=== PATIENT | female | born 1985 | race Caucasian/White ===

== ENCOUNTER 2017-12-24 21:27 | Observation (INO) | payer BC ==
[2017-12-24] MEDS ORDERED: ONDANSETRON 4 MG/2 ML VIAL IVP STA (21:54)
[2017-12-24] MEDS ORDERED: KETOROLAC 30 MG/ML 1 ML VIAL IVP STA (21:54)
[2017-12-24] MEDS ORDERED: SODIUM CHLORIDE 0.9% 1,000 ML IV STA (21:54)
--- NOTE | 2017-12-24 21:57 | ED ---
Abdominal Pain HPI - General Chief Complaint: Abdominal Pain Stated Complaint: Abd Pain Time Seen by Provider: 12/24/17 21:34 Source: patient, RN notes reviewed Mode of arrival: ambulatory Limitations: no limitations - History of Present Illness Initial Comments: This is a 32-year-old female who presents to the emergency department with chief complaint of right upper quadrant abdominal pain. Patient states that for the past 4-5 days she has been experiencing right upper quadrant abdominal pain after eating. She states that the pain is stabbing and burning and radiates to her back. She denies any fevers or chills. He reports nausea, vomiting and loose stools. Denies any urinary symptoms such as dysuria or hematuria. She does state that she developed right upper quadrant abdominal pain in 2003 and was evaluated for gallbladder issues. She is unsure if she was diagnosed with gallstones but states that her doctor told her she had some sort of gallbladder abnormality. - Related Data Home Medications Medication Instructions Recorded Confirmed Pnv,Calcium 72/Iron/Folic Acid 1 each PO DAILY 02/01/16 02/01/16 [ Plus Tablet] Previous Rx's Medication Instructions Recorded Acetaminophen-Codeine 300-30mg 1 - 2 each PO Q4HR PRN #40 tab 02/04/16 [Tylenol w/codeine #3] Ibuprofen [Motrin] 600 mg PO Q6HR PRN #40 tab 02/04/16 Allergies Allergy/AdvReac Type Severity Reaction Status Date / Time No Known Allergies Allergy Verified 12/24/17 21:31 Review of Systems ROS Statement: Those systems with pertinent positive or pertinent negative responses have been documented in the HPI. ROS Other: All systems not noted in ROS Statement are negative. Past Medical History Past Medical History: No Reported History History of Any Multi-Drug Resistant Organisms: None Reported Past Surgical History: Orthopedic Surgery, Tonsillectomy Additional Past Surgical History / Comment(s): cervical biopsy 2001 for negative result Past Anesthesia/Blood Transfusion Reactions: No Reported Reaction Past Psychological History: No Psychological Hx Reported Smoking Status: Current every day smoker Past Alcohol Use History: None Reported Past Drug Use History: None Reported - Past Family History Mother History Unknown: Yes Family Medical History: No Reported History General Exam - General Exam Comments Initial Comments: General: Awake and alert, well-developed; in no apparent distress. HEENT: Head atraumatic, normocephalic. Pupils are equal, round and reactive to light. Extraocular movements intact. Oropharynx moist without erythema or exudate. Neck: Supple. Normal ROM. Cardiovascular: Regular rate and rhythm. No murmurs, rubs or gallops. Chest symmetrical. Respiratory: Lungs clear to auscultation bilaterally. No wheezes, rales or rhonchi. Normal respiratory effort with no use of accessory muscles. Abdomen: Soft, non-distended. Tenderness on palpation right upper quadrant. No rigidity, rebound or guarding. Normal bowel sounds in all 4 quadrants. Musculoskeletal: Normal ROM, no tenderness bilateral upper and lower extremities. Ambulating normally. Skin: [place], warm and dry without rashes or lesions. Neurological: Alert and oriented x3. CN II-XII grossly intact. Speech is fluent and answers are appropriate. No focal neuro deficits. Psychiatric: Normal mood and affect. No overt signs of depression or anxiety noted. Limitations: no limitations (Initial vital signs: Temperature 90.7, pulse 89, respirations 18, blood pressure 149/100, pulse ox 90% on room air) Course Vital Signs 12/24/17 12/24/17 21:28 23:10 Temperature 98.7 F Pulse Rate 89 Respiratory 18 18 Rate Blood Pressure 149/100 O2 Sat by Pulse 98 Oximetry Medical Decision Making - Medical Decision Making This is a 32-year-old female presents to the emergency department with chief complaint of right upper quadrant abdominal pain for the past week. The pain comes on after she eats. Admits to associated nausea and vomiting. Denies fevers or chills. Ultrasound of the gallbladder was obtained and revealed a gallstone impacted in the gallbladder neck. CBC was unremarkable without a white count. CMP was unremarkable. No elevation of transaminases, amylase or lipase. Patient's vital signs are stable and she is afebrile. Patient will be admitted under Dr. York with the diagnosis of choledocholithiasis. She was given a single dose of Rocephin, pain medication and antiemetics while in the emergency department. She states that she her symptoms have markedly improved. Patient is in agreement for admission. Gastroenterology will be consulted. Patient is in no acute distress at this time. - Lab Data Result diagrams: 12/24/17 23:00 12/24/17 23:00 Lab Results 06/24/18 06/24/18 06/24/18 Range/Units 21:45 21:45 23:00 WBC (3.8-10.6) k/uL RBC (3.80-5.40) m/uL Hgb (11.4-16.0) gm/dL Hct (34.0-46.0) % MCV (80.0-100.0) fL MCH (25.0-35.0) pg MCHC (31.0-37.0) g/dL RDW (11.5-15.5) % Plt Count (150-450) k/uL Neutrophils % (Manual) % Lymphocytes % (Manual) % Monocytes % (Manual) % Eosinophils % (Manual) % Neutrophils # (Manual) (1.3-7.7) k/uL Lymphocytes # (Manual) (1.0-4.8) k/uL Monocytes # (Manual) (0-1.0) k/uL Eosinophils # (Manual) (0-0.7) k/uL Nucleated RBCs (0-0) /100 WBC Manual Slide Review PT (9.0-12.0) sec INR (<1.2) APTT (22.0-30.0) sec Sodium 139 (137-145) mmol/L Potassium 4.3 (3.5-5.1) mmol/L Chloride 108 H (98-107) mmol/L Carbon Dioxide 20 L (22-30) mmol/L Anion Gap 11 mmol/L BUN 14 (7-17) mg/dL Creatinine 0.70 (0.52-1.04) mg/dL Est GFR (CKD-EPI)AfAm >90 (>60 ml/min/1.73 sqM) Est GFR (CKD-EPI)NonAf >90 (>60 ml/min/1.73 sqM) Glucose 94 (74-99) mg/dL Calcium 8.9 (8.4-10.2) mg/dL Total Bilirubin 0.4 (0.2-1.3) mg/dL AST 27 (14-36) U/L ALT 35 (9-52) U/L Alkaline Phosphatase 57 (38-126) U/L Total Protein 6.8 (6.3-8.2) g/dL Albumin 3.9 (3.5-5.0) g/dL Amylase 68 (30-110) U/L Lipase 116 (23-300) U/L Urine Color Yellow Urine Appearance Turbid H (Clear) Urine pH 8.0 (5.0-8.0) Ur Specific [place] 1.020 (1.001-1.035) Urine Protein Negative (Negative) Urine Glucose (UA) Negative (Negative) Urine Ketones Negative (Negative) Urine Blood Small H (Negative) Urine Nitrite Negative (Negative) Urine Bilirubin Negative (Negative) Urine Urobilinogen 2.0 (<2.0) mg/dL Ur Leukocyte Esterase Negative (Negative) Urine RBC 5 (0-5) /hpf Ur Squamous Epith Cells 4 (0-4) /hpf Amorphous Sediment Moderate H (None) /hpf Urine HCG, Qual Not Detected (Not Detectd) 12/24/17 12/24/17 Range/Units 23:00 23:00 WBC 10.6 (3.8-10.6) k/uL RBC 4.84 (3.80-5.40) m/uL Hgb 13.5 (11.4-16.0) gm/dL Hct 41.0 (34.0-46.0) % MCV 84.6 (80.0-100.0) fL MCH 27.9 (25.0-35.0) pg MCHC 33.0 (31.0-37.0) g/dL RDW 12.9 (11.5-15.5) % Plt Count 353 (150-450) k/uL Neutrophils % (Manual) 53 % Lymphocytes % (Manual) 37 % Monocytes % (Manual) 7 % Eosinophils % (Manual) 3 % Neutrophils # (Manual) 5.62 (1.3-7.7) k/uL Lymphocytes # (Manual) 3.92 (1.0-4.8) k/uL Monocytes # (Manual) 0.74 (0-1.0) k/uL Eosinophils # (Manual) 0.32 (0-0.7) k/uL Nucleated RBCs 0 (0-0) /100 WBC Manual Slide Review Performed PT 10.0 (9.0-12.0) sec INR 1.0 (<1.2) APTT 30.7 H (22.0-30.0) sec Sodium (137-145) mmol/L Potassium (3.5-5.1) mmol/L Chloride (98-107) mmol/L Carbon Dioxide (22-30) mmol/L Anion Gap mmol/L BUN (7-17) mg/dL Creatinine (0.52-1.04) mg/dL Est GFR (CKD-EPI)AfAm (>60 ml/min/1.73 sqM) Est GFR (CKD-EPI)NonAf (>60 ml/min/1.73 sqM) Glucose (74-99) mg/dL Calcium (8.4-10.2) mg/dL Total Bilirubin (0.2-1.3) mg/dL AST (14-36) U/L ALT (9-52) U/L Alkaline Phosphatase (38-126) U/L Total Protein (6.3-8.2) g/dL Albumin (3.5-5.0) g/dL Amylase (30-110) U/L Lipase (23-300) U/L Urine Color Urine Appearance (Clear) Urine pH (5.0-8.0) Ur Specific [place] (1.001-1.035) Urine Protein (Negative) Urine Glucose (UA) (Negative) Urine Ketones (Negative) Urine Blood (Negative) Urine Nitrite (Negative) Urine Bilirubin (Negative) Urine Urobilinogen (<2.0) mg/dL Ur Leukocyte Esterase (Negative) Urine RBC (0-5) /hpf Ur Squamous Epith Cells (0-4) /hpf Amorphous Sediment (None) /hpf Urine HCG, Qual (Not Detectd) - Radiology Data Radiology results: report reviewed Ultrasound gallbladder impression: Right kidney measures 11.4 x 5 cm with no hydronephrosis. No free fluid. There is a gallstone impacted in the gallbladder neck. Common bile duct is 3 mm. Bile ducts are not dilated. Disposition Clinical Impression: Choledocholithiasis Disposition: ADMITTED IP TO THIS HOSP Condition: Good Is patient prescribed a controlled substance at d/c from ED?: No Time of Disposition: 23:57
[2017-12-24 22:29] LABS: Amorphous Sediment,Urine Moderate /hpf; Appearance,Urine Turbid (Clear); Bilirubin,Urine Negative (Negative); Blood,Urine Small (Negative); Color,Urine Yellow; Glucose,Urine (UA) Negative (Negative); Ketones,Urine Negative (Negative); Leukocyte Esterase,Urine Negative (Negative); Nitrite,Urine Negative (Negative); Protein,Urine Negative (Negative); RBC,Urine 5 /hpf (0-5); Squamous Epithelial Cell,Urine 4 /hpf (0-4)
--- NOTE | 2017-12-24 23:18 | US ---
EXAMINATION TYPE: US gallbladder DATE OF EXAM: 12/24/2017 COMPARISON: NONE CLINICAL HISTORY: Pain. EC patient with severe epigastric and RUQ pain, nausea and vomiting with pain radiating to back EXAM MEASUREMENTS: Liver Length: cm Gallbladder Wall: cm CBD: cm Right Kidney: cm Pancreas: hyperechoic Liver: no masses seen Gallbladder: non mobile, shadowing stone seen in neck of gallbladder and stone size = 1.5 x 1.7 x 0. 7cm; thickened gallbladder wall Evidence for sonographic Cruz's sign: yes CBD: wnl Right Kidney: wnl IMPRESSION: Right kidney measures 11.4 x 5 cm with no hydronephrosis. No free fluid. : There is a gallstone impacted in the gallbladder neck. Common bile duct is 3 mm. Bile ducts are not dilated.
[2017-12-24 23:21] LABS: HGB 13.5 gm/dL (11.4-16.0); MCH 27.9 pg (25.0-35.0); MCV 84.6 fL (80.0-100.0); Mean Platelet Volume 7.4; Platelet Count 353 k/uL (150-450); RBC 4.84 m/uL (3.80-5.40); RDW 12.9 % (11.5-15.5); WBC 10.6 k/uL (3.8-10.6)
[2017-12-24 23:28] LABS: ALT 35 U/L (9-52); AST 27 U/L (14-36); Albumin 3.9 g/dL (3.5-5.0); Alkaline Phosphatase 57 U/L (38-126); Amylase 68 U/L (30-110); Anion Gap 11 mmol/L; Blood Urea Nitrogen 14 mg/dL (7-17); Calcium 8.9 mg/dL (8.4-10.2); Carbon Dioxide 20 mmol/L (22-30); Chloride 108 mmol/L (98-107); Glucose 94 mg/dL (74-99); Lipase 116 U/L (23-300); Partial Thromboplastin Time 30.7 sec (22.0-30.0); Potassium 4.3 mmol/L (3.5-5.1); Sodium 139 mmol/L (137-145); Total Bilirubin 0.4 mg/dL (0.2-1.3); Total Protein 6.8 g/dL (6.3-8.2)
[2017-12-24] MEDS ORDERED: cefTRIAXone IN SWFI 1,000 MG/10 ML SYRINGE IVP STA (23:41)
[2017-12-24] MEDS ORDERED: IBUPROFEN 400 MG TAB PO PRN (23:52)
[2017-12-24] MEDS ORDERED: NALOXONE 0.4 MG/ML 1 ML VIAL IV PRN (23:52)
[2017-12-25 00:04] LABS: Eosinophils # (M) 0.32 k/uL (0-0.7); Lymphocytes # (M) 3.92 k/uL (1.0-4.8); Monocytes # (M) 0.74 k/uL (0-1.0); Neutrophils # (M) 5.62 k/uL (1.3-7.7); Neutrophils % (M) 53 %; Nucleated Red Blood Cells 0 /100 WBC (0-0); Total Cells Counted 100
[2017-12-25] MEDS: SODIUM CHLORIDE 0.9% 1,000 ML IV SCH (00:24)
[2017-12-25 01:10] VITALS: BMI 44.7
[2017-12-25] MEDS: ONDANSETRON 4 MG/2 ML VIAL IVP PRN (08:34)
--- NOTE | 2017-12-25 14:07 | P.HPIM ---
History of Present Illness H&P Date: 12/25/17 Chief Complaint: abdominal pain 32-year-old who presented to the emergency room with a chief complaint of right upper quadrant pain for the last two weeks with occasional emesis. Patient reports her pain states about 20 minutes after eating and was originally only lasting 30 minutes after a meal, but more recently the pain is lasting 2-3 hours after each meal. She reports nausea this morning but no further episodes of vomiting. Reports bowel movement yesterday. Voiding without difficulty. Patient states she saw a family physician in 2003 and was told she had a gallbladder abnormality, but patient was unable to elaborate any further. She states she did not have any gallstones at that time. The patient denies medical history. She has a surgical history of tonsillectomy and . She is a current everyday cigarette smoker. Ultrasound: Her: There is a gallstone impacted in the complete her neck., Bile duct is 3 mm. Bile ducts are not dilated. Laboratory data: WBC 10.6. Hemoglobin 13.5. Platelet count 353. Sodium 139. Potassium 4.3. BUN 14. Creatinine 0.70. LFTs and pancreas enzymes within normal limits. Urinalysis: Turbid yellow urine, small hematuria, negative for leukocyte esterase or nitrites. The patient was admitted to the hospital under the care of Dr. Renteria. Consultations were placed to GI. Review of Systems Those systems with pertinent positive or pertinent negative responses have been documented in the HPI Past Medical History Past Medical History: No Reported History History of Any Multi-Drug Resistant Organisms: None Reported Past Surgical History: Section, Orthopedic Surgery, Tonsillectomy Additional Past Surgical History / Comment(s): cervical biopsy 2001 for negative result Past Anesthesia/Blood Transfusion Reactions: No Reported Reaction Past Psychological History: No Psychological Hx Reported Smoking Status: Current every day smoker Past Alcohol Use History: None Reported Past Drug Use History: None Reported - Past Family History Mother History Unknown: Yes Family Medical History: No Reported History Medications and Allergies Home Medications Medication Instructions Recorded Confirmed Type Multivitamins, Thera [Multivitamin 1 tab PO HS 12/25/17 12/25/17 History (formulary)] [id number] 1 tab PO HS 12/25/17 12/25/17 History Allergies Allergy/AdvReac Type Severity Reaction Status Date / Time No Known Allergies Allergy Verified 12/24/17 21:31 Physical Exam Vitals: Vital Signs Temp Pulse Pulse Resp BP BP Pulse Ox 12/25/17 07:30 98.1 F 68 16 125/86 97 12/25/17 01:02 98.2 F 66 16 132/87 95 12/25/17 00:26 98.8 F 72 18 136/72 99 12/24/17 23:10 18 12/24/17 21:28 98.7 F 89 18 149/100 98 Intake and Output 12/24/17 12/25/17 12/25/17 22:59 06:59 14:59 Output Total 250 Balance -250 Output: Urine 250 Other: Voiding Method Toilet Toilet # Voids 1 Weight 115.666 kg 118.3 kg GENERAL: This is a 32-year-old female in no apparent distress at the time of examination. Pleasant and cooperative. HEENT: Head is atraumatic, normocephalic. Pupils are equal, round, and reactive to light. Sclerae anicteric. Conjunctivae are clear. Mucus membranes of the mouth are moist. Neck is supple. RESPIRATORY: Clear to ausculation. No wheezes, rales, or rhonchi. No use of accessory muscles. Patient maintaining oxygen saturation greater than 92%. No chest wall tenderness is noted on palpation or with deep breathing. CARDIOVASCULAR: Regular rate and rhythm. S1 and S2 noted. No systolic or diastolic murmur auscultated. No JVD noted. No S3 or S4 noted. GASTROINTESTINAL: No distention noted. Abdomen soft and round. Normal active bowel sounds auscultated x 4 quadrants. Pain and tenderness noted upon palpation of right upper quadrant. INTEGUMENTARY: No cyanosis. No jaundice. No rashes noted. No cellulitis noted. EXTREMITIES: 2+ peripheral pulses. No evidence of peripheral edema. No calf tenderness noted. NEUROLOGIC: Cranial nerves II-XII intact. PSYCHIATRIC: Awake, alert, and oriented X 3. Appropriate affect. Intact judgement and insight. Results CBC & Chem 7: 12/24/17 23:00 12/24/17 23:00 Labs: Abnormal Lab Results - Last 24 Hours (Table) 12/24/17 12/24/17 12/24/17 Range/Units 21:45 23:00 23:00 APTT 30.7 H (22.0-30.0) sec Chloride 108 H (98-107) mmol/L Carbon Dioxide 20 L (22-30) mmol/L Urine Appearance Turbid H (Clear) Urine Blood Small H (Negative) Amorphous Sediment Moderate H (None) /hpf Thrombosis Risk Factor Assmnt - Choose All That Apply Each Factor Represents 1 point: Obesity (BMI >25), Oral contraceptives or hormone replacement therapy Other Risk Factors: No Thrombosis Risk Factor Assessment Total Risk Factor Score: 2 Thrombosis Risk Factor Assessment Level: Low Risk Assessment and Plan Plan: ASSESSMENT: Right upper quadrant abdominal pain, nausea, and vomiting x 2 weeks, US gallbladder reveals gallstone impacted in the common bile duct Nicotine dependence, patient is a current cigarette smoker Morbid obesity: BMI 44.8 PLAN: GI on consult. Appreciate recommendations and input Continue IV fluids Pain control Anti-emetics NPO Home meds as appropriate Monitor labs GI prophylaxis: Protonix 40 mg IV Daily DVT prophylaxis: SCDs to bilateral lower extremities Monitor vital signs and address as appropriate Discharge planning: Patient to return home when stable Further recommendations pending patient's course Nurse practitioner note has been reviewed by physician. Signing provider agrees with the documented findings, assessment, and plan of care.
[2017-12-25] MEDS: KETOROLAC 30 MG/ML 1 ML VIAL IVP PRN ×2 (16:53→23:52)
--- NOTE | 2017-12-25 17:40 | P.GSCN ---
History of Present Illness Consult date: 12/25/17 Reason for Consult: Acute cholecystitis History of present illness: Patient presents to the ER last night with complaints of right upper quadrant pain. Some radiation to the back. There were episodes of nausea and vomiting with this. Similar episodes in 2004 in 2016. Ultrasound shows gallstones with an impacted stone at the gallbladder neck. Liver enzymes are currently normal. She is afebrile. Denies any change in the color of her skin urine or stool. Overall feels better than when she came to the hospital. Review of Systems The patient denies any acute changes in vision or hearing, no dysphagia or odynophagia, no chest pain or shortness of breath, no dysuria or hematuria, no headache, no runny nose, no rectal bleeding or melena, no unexplained weight loss Past Medical History Past Medical History: No Reported History History of Any Multi-Drug Resistant Organisms: None Reported Past Surgical History: Section, Orthopedic Surgery, Tonsillectomy Additional Past Surgical History / Comment(s): cervical biopsy 2001 for negative result Past Anesthesia/Blood Transfusion Reactions: No Reported Reaction Past Psychological History: No Psychological Hx Reported Smoking Status: Current every day smoker Past Alcohol Use History: None Reported Past Drug Use History: None Reported - Past Family History Mother History Unknown: Yes Family Medical History: No Reported History Medications and Allergies Home Medications Medication Instructions Recorded Confirmed Type Multivitamins, Thera [Multivitamin 1 tab PO HS 12/25/17 12/25/17 History (formulary)] [id number] 1 tab PO HS 12/25/17 12/25/17 History Allergies Allergy/AdvReac Type Severity Reaction Status Date / Time No Known Allergies Allergy Verified 12/24/17 21:31 Surgical - Exam Vital Signs Temp Pulse Resp BP Pulse Ox 98.7 F 89 18 149/100 98 12/24/17 21:28 12/24/17 21:28 12/24/17 21:28 12/24/17 21:28 12/24/17 21:28 Physical exam: General: Well-developed, well-nourished HEENT: Normocephalic, sclerae nonicteric Abdomen: Nontender, nondistended Extremities: No edema Neuro: Alert and oriented Results - Labs 12/24/17 23:00 12/24/17 23:00 Abnormal Lab Results - Last 24 Hours (Table) 12/24/17 12/24/17 12/24/17 Range/Units 21:45 23:00 23:00 APTT 30.7 H (22.0-30.0) sec Chloride 108 H (98-107) mmol/L Carbon Dioxide 20 L (22-30) mmol/L Urine Appearance Turbid H (Clear) Urine Blood Small H (Negative) Amorphous Sediment Moderate H (None) /hpf Diabetes panel 12/24/17 Range/Units 23:00 Sodium 139 (137-145) mmol/L Potassium 4.3 (3.5-5.1) mmol/L Chloride 108 H (98-107) mmol/L Carbon Dioxide 20 L (22-30) mmol/L BUN 14 (7-17) mg/dL Creatinine 0.70 (0.52-1.04) mg/dL Glucose 94 (74-99) mg/dL Calcium 8.9 (8.4-10.2) mg/dL AST 27 (14-36) U/L ALT 35 (9-52) U/L Alkaline Phosphatase 57 (38-126) U/L Total Protein 6.8 (6.3-8.2) g/dL Albumin 3.9 (3.5-5.0) g/dL Calcium panel 12/24/17 Range/Units 23:00 Calcium 8.9 (8.4-10.2) mg/dL Albumin 3.9 (3.5-5.0) g/dL Pituitary panel 12/24/17 Range/Units 23:00 Sodium 139 (137-145) mmol/L Potassium 4.3 (3.5-5.1) mmol/L Chloride 108 H (98-107) mmol/L Carbon Dioxide 20 L (22-30) mmol/L BUN 14 (7-17) mg/dL Creatinine 0.70 (0.52-1.04) mg/dL Glucose 94 (74-99) mg/dL Calcium 8.9 (8.4-10.2) mg/dL Adrenal panel 12/24/17 Range/Units 23:00 Sodium 139 (137-145) mmol/L Potassium 4.3 (3.5-5.1) mmol/L Chloride 108 H (98-107) mmol/L Carbon Dioxide 20 L (22-30) mmol/L BUN 14 (7-17) mg/dL Creatinine 0.70 (0.52-1.04) mg/dL Glucose 94 (74-99) mg/dL Calcium 8.9 (8.4-10.2) mg/dL Total Bilirubin 0.4 (0.2-1.3) mg/dL AST 27 (14-36) U/L ALT 35 (9-52) U/L Alkaline Phosphatase 57 (38-126) U/L Total Protein 6.8 (6.3-8.2) g/dL Albumin 3.9 (3.5-5.0) g/dL Assessment and Plan (1) Acute cholecystitis due to biliary calculus Narrative/Plan: Will repeat labs tomorrow. Continue antibiotics. Keep nothing by mouth after midnight. Tentatively plan lap corinne tomorrow. Risks of bleeding, infection, bile leak, bile duct injury, retained common bile duct stone, trocar injury, conversion to an open procedure, potential findings of other etiologies for her pain requiring additional procedures, hernia, anesthesia related complications were reviewed. The patient understands and wishes to proceed. Current Visit: Yes Status: Acute Code(s): K80.00 - CALCULUS OF GALLBLADDER W ACUTE CHOLECYST W/O OBSTRUCTION SNOMED Code(s): 09648694657866
--- NOTE | 2017-12-25 21:05 | CONS ---
CONSULTATION DATE OF SERVICE: 12/25/17 REQUESTING PHYSICIAN: Dr. York. REASON FOR CONSULTATION: Right upper quadrant abdominal pain and gallstones. HISTORY OF PRESENT ILLNESS: The patient is a 32-year-old pleasant white female who came to the emergency room last night complaining of severe epigastric and right upper quadrant abdominal pain that started about 2 weeks ago. The pain has been intermittent but for the last 3-4 days it has been persistent. She had some nausea but no emesis. She had in 2003 at which time she had ultrasound of the gallbladder and was told she has gallstones. Subsequently in 2015 while she was , she had an attack and an ultrasound at that time showed some gallstones. She remained asymptomatic until 2 weeks ago. She did have a CT that showed multiple gallstones with a stone impacted at the gallbladder neck with no biliary ductal dilation. This morning, she is feeling better. She has some discomfort in the epigastric area. No fever, chills, or night sweats. PAST MEDICAL HISTORY: Unremarkable. PAST SURGICAL HISTORY: Tonsillectomy and C-section. MEDICATIONS: At home: . ALLERGIES: No known drug allergies. SOCIAL HISTORY: No smoking. No alcohol use. FAMILY HISTORY: Unremarkable. REVIEW OF SYSTEMS: CARDIOPULMONARY: No chest pain, shortness of breath. GENITOURINARY: No dysuria or hematuria. MUSCULOSKELETAL: Unremarkable. SKIN: Unremarkable. ENDOCRINE: Unremarkable. PSYCHIATRIC: Unremarkable. NEUROLOGICAL: Unremarkable. CONSTITUTIONAL: No recent weight loss, fever or chills, night sweats. EXAMINATION: On physical examination she appears comfortable. No apparent distress. pulse rate 62, afebrile. HEENT: Unremarkable. Conjunctivae pink. Sclerae anicteric. Oral cavity no lesions. NECK: No jugular venous distention or lymph node enlargement. positive. No organomegaly. EXTREMITIES: No pedal edema. SKIN no rashes. NEUROLOGICAL: Alert and oriented x3. No focal deficits. LAB DATA: ALT and AST respectively. T-bili and alk phos are normal. CBC within normal limits. IMPRESSION: The patient presents to the hospital with intermittent episodes of epigastric right upper quadrant abdominal pain for the last two weeks duration. She had a similar episode 15 years ago and one 2 years ago when she was in her third-trimester. Ultrasound did show evidence of stone in the neck of the gallbladder. There is no evidence of biliary ductal dilation. Serum transaminases are within normal limits. Her clinical picture is more consistent with biliary type pain/acute cholecystitis. RECOMMENDATIONS: 1. Continue with current medications, antibiotics. 2. No indication for ERCP at the present time. 3. We will obtain surgical consultation. 4. Start on clear liquid diet for today. 5. We will sign off. Please call us if needed. MMODL / IJN: [id number] /
[2017-12-25] MEDS: cefTRIAXone IN SWFI 1,000 MG/10 ML SYRINGE IVP SCH (23:51)
[2017-12-26] MEDS: SODIUM CHLORIDE 0.9% 1,000 ML IV SCH ×2 (01:43→09:08)
[2017-12-26 07:36] LABS: ALT 32 U/L (9-52); AST 18 U/L (14-36); Albumin 3.2 g/dL (3.5-5.0); Alkaline Phosphatase 49 U/L (38-126); Amylase 32 U/L (30-110); Anion Gap 11 mmol/L; Blood Urea Nitrogen 6 mg/dL (7-17); Calcium 8.2 mg/dL (8.4-10.2); Carbon Dioxide 22 mmol/L (22-30); Chloride 107 mmol/L (98-107); Glucose 83 mg/dL (74-99); Potassium 4.5 mmol/L (3.5-5.1); Sodium 140 mmol/L (137-145); Total Bilirubin 0.4 mg/dL (0.2-1.3); Total Protein 5.6 g/dL (6.3-8.2)
[2017-12-26 07:45] LABS: HCT 39.3 % (34.0-46.0); HGB 12.5 gm/dL (11.4-16.0); MCH 27.2 pg (25.0-35.0); MCHC 31.8 g/dL (31.0-37.0); MCV 85.5 fL (80.0-100.0); Mean Platelet Volume 6.5; Platelet Count 286 k/uL (150-450); RDW 12.8 % (11.5-15.5); WBC 6.8 k/uL (3.8-10.6)
[2017-12-26 08:20] LABS: Eosinophils # (M) 0.27 k/uL (0-0.7); Lymphocytes # (M) 3.33 k/uL (1.0-4.8); Monocytes # (M) 0.34 k/uL (0-1.0); Neutrophils # (M) 2.86 k/uL (1.3-7.7); Neutrophils % (M) 42 %; Nucleated Red Blood Cells 0 /100 WBC (0-0); Total Cells Counted 100
[2017-12-26] MEDS ORDERED: PANTOPRAZOLE 40 MG/10 ML VIAL IVP SCH (09:00)
[2017-12-26] MEDS: ONDANSETRON 4 MG/2 ML VIAL IVP PRN (09:06)
--- NOTE | 2017-12-26 09:45 | P.PN ---
Subjective Progress Note Date: 12/26/17 32-year-old who presented to the emergency room with a chief complaint of right upper quadrant pain for the last two weeks with occasional emesis. Patient reports her pain states about 20 minutes after eating and was originally only lasting 30 minutes after a meal, but more recently the pain is lasting 2-3 hours after each meal. She reports nausea this morning but no further episodes of vomiting. Reports bowel movement yesterday. Voiding without difficulty. Patient states she saw a family physician in 2003 and was told she had a gallbladder abnormality, but patient was unable to elaborate any further. She states she did not have any gallstones at that time. The patient denies medical history. She has a surgical history of tonsillectomy and . She is a current everyday cigarette smoker. Ultrasound: There is a gallstone impacted in the gallbladder neck., Bile duct is 3 mm. Bile ducts are not dilated. Laboratory data: WBC 10.6. Hemoglobin 13.5. Platelet count 353. Sodium 139. Potassium 4.3. BUN 14. Creatinine 0.70. LFTs and pancreas enzymes within normal limits. Urinalysis: Turbid yellow urine, small hematuria, negative for leukocyte esterase or nitrites.The patient was admitted to the hospital under the care of Dr. Renteria. Consultations were placed to GI. 12/26/2017 Patient seen and examined at the bedside. Patient is scheduled for lap corinne today with Dr. Baldwin. Patient has been NPO. She reports nausea this morning and relates it to being NPO. She denies emesis. She continues to complain of abdominal pain. Vital signs have been stable. Objective - Vital Signs Vital signs: Vital Signs Temp 97.6 F 12/26/17 08:43 Pulse 55 L 12/26/17 08:43 Resp 12 12/26/17 08:43 BP 123/79 12/26/17 08:43 Pulse Ox 97 12/26/17 08:43 Intake & Output 12/25/17 12/26/17 12/26/17 18:59 06:59 18:59 Intake Total 0 Output Total 1 Balance -1 Intake: Oral 0 Output: Urine 1 Other: Voiding Method Toilet # Voids 2 - Exam GENERAL: This is a 32-year-old female in no apparent distress at the time of examination. Pleasant and cooperative. HEENT: Head is atraumatic, normocephalic. Pupils are equal, round, and reactive to light. Sclerae anicteric. Conjunctivae are clear. Mucus membranes of the mouth are moist. Neck is supple. RESPIRATORY: Clear to ausculation. No wheezes, rales, or rhonchi. No use of accessory muscles. Patient maintaining oxygen saturation greater than 92%. No chest wall tenderness is noted on palpation or with deep breathing. CARDIOVASCULAR: Regular rate and rhythm. S1 and S2 noted. No systolic or diastolic murmur auscultated. No JVD noted. No S3 or S4 noted. GASTROINTESTINAL: No distention noted. Abdomen soft and round. Normal active bowel sounds auscultated x 4 quadrants. Pain and tenderness noted upon palpation of right upper quadrant. INTEGUMENTARY: No cyanosis. No jaundice. No rashes noted. No cellulitis noted. EXTREMITIES: 2+ peripheral pulses. No evidence of peripheral edema. No calf tenderness noted. NEUROLOGIC: Cranial nerves II-XII intact. PSYCHIATRIC: Awake, alert, and oriented X 3. Appropriate affect. Intact judgement and insight. - Labs CBC & Chem 7: 12/26/17 06:31 18 06:31 Labs: Abnormal Lab Results - Last 24 Hours (Table) 12/26/17 Range/Units 06:31 BUN 6 L (7-17) mg/dL Calcium 8.2 L (8.4-10.2) mg/dL Total Protein 5.6 L (6.3-8.2) g/dL Albumin 3.2 L (3.5-5.0) g/dL Assessment and Plan Plan: ASSESSMENT: Right upper quadrant abdominal pain, nausea, and vomiting x 2 weeks, suspect acute cholecystitis, US gallbladder reveals gallstone impacted in the common bile duct Nicotine dependence, patient is a current cigarette smoker Morbid obesity: BMI 44.8 PLAN: Patient scheduled for lap corinne today with Dr. Baldwin Continue IV fluids Pain control Anti-emetics NPO Home meds as appropriate Monitor labs GI prophylaxis: Protonix 40 mg IV Daily DVT prophylaxis: SCDs to bilateral lower extremities Monitor vital signs and address as appropriate Discharge planning: Patient to return home when stable Further recommendations pending patient's course Nurse practitioner note has been reviewed by physician. Signing provider agrees with the documented findings, assessment, and plan of care.
[2017-12-26] MEDS ORDERED: IV FLUID CONTINUATION 1,000 ML IV ONE (11:47)
[2017-12-26] MEDS ORDERED: HEPARIN SODIUM,PORCINE 5,000 UNIT/ML 1 ML VIAL SQ ONE (13:38)
[2017-12-26] MEDS ORDERED: ceFAZolin IN SWFI 2 GM/20 ML SYRINGE IVP ONE (13:45)
[2017-12-26] MEDS ORDERED: GLYCOPYRROLATE 0.2 MG/ML 2 ML VIAL ONE (14:08)
[2017-12-26] MEDS ORDERED: LIDOCAINE 1% INJ 10MG/ML (20 ML MDV) ONE (14:08)
[2017-12-26] MEDS ORDERED: MIDAZOLAM 2 MG/2 ML VIAL ONE (14:08)
[2017-12-26] MEDS ORDERED: PROPOFOL 10 MG/ML 20 ML VIAL IV ONE (14:08)
[2017-12-26] MEDS ORDERED: ROCURONIUM BROMIDE 10 MG/ML 10 ML VIAL IV ONE (14:08)
[2017-12-26] MEDS ORDERED: NEOSTIGMINE 1 MG/ML 10 ML VIAL ONE (14:08)
[2017-12-26] MEDS ORDERED: fentaNYL (PF) 50 MCG/ML 2 ML AMP ONE (14:08)
[2017-12-26] MEDS ORDERED: SUCCINYLCHOLINE CHLORIDE 100 MG/5 ML SYR IV ONE (14:08)
[2017-12-26] MEDS ORDERED: LIDOCAINE 1% (PF) 10 MG/ML (30 ML SDV) SQ ONE ×2 (14:27)
[2017-12-26] MEDS ORDERED: LACTATED RINGERS 1,000 ML IV ONE (14:43)
[2017-12-26] MEDS ORDERED: HYDROcodone/APAP 5-325MG 1 EACH TAB PO PRN (15:25)
--- NOTE | 2017-12-26 15:28 | P.OP ---
Date of Procedure: 12/26/17 Procedure(s) Performed: PREOPERATIVE DIAGNOSIS: Acute calculus cholecystitis POSTOPERATIVE DIAGNOSIS: Same PROCEDURE: Laparoscopic cholecystectomy SURGEON: Denny EBL: Minimal see anesthesia record ANESTHESIA: Gen. COMPLICATIONS: None OPERATIVE PROCEDURE: The patient was brought and placed on the operating room table in the supine position. The patient was placed under general anesthesia at that time. The abdomen was prepped and draped in the usual sterile fashion. A small vertical infraumbilical incision was made. The fascia was grasped with the Jorje forceps. The fascia was retracted anteriorly. The Veress needle was advanced into the peritoneal cavity. The saline drop test was normal. Insufflation took place up to 15 mmHg. A 5 mm optical trocar was advanced and the peritoneal cavity. 2 additional 5 mm trochars were placed in the right upper quadrant under direct visualization. A 12 mm trocar was advanced into the epigastric incision site. The gallbladder was acutely inflamed. The gallbladder wall was edematous. No gangrenous changes were seen. The gallbladder was retracted superiorly and laterally. The peritoneum overlying the infundibulum was bluntly dissected. The patient's cystic duct was visualized. The junction between the cystic duct common and hepatic duct was identified. The cystic duct was then divided after placement of 3 12 mm clips on the patient's side and one on the specimen side. The cystic artery was identified and clipped as well. A small vessel was seen along the gallbladder fossa and clipped as well. The gallbladder was then removed from the liver bed using electrocautery. The gallbladder was then removed from the epigastric trocar site with an Endo Catch bag after lengthening incision. The gallbladder fossa was irrigated with saline. There was no evidence of any bleeding or biliary drainage seen. The trochars were then removed. The fascia at the 12 millimeter site was closed using a running 0 Vicryl stitch. The skin at all 4 sites was closed using a 4-0 Monocryl stitch. At the end of this procedure the sponge and needle counts were correct. DISPOSITION: Stable to the recovery room
[2017-12-26] MEDS ORDERED: KETOROLAC 30 MG/ML 1 ML VIAL IVP ONE (15:43)
[2017-12-26] MEDS ORDERED: ONDANSETRON 4 MG/2 ML VIAL IVP ONE (15:44)
[2017-12-26] MEDS ORDERED: diphenhydrAMINE 50 MG/ML 1 ML VIAL IVP ONE (15:45)
[2017-12-26] MEDS ORDERED: PROMETHAZINE INJ 25 MG/ML 1 ML VIAL IVPB ONE (15:59)
[2017-12-26] MEDS: HYDROmorphone 1 MG/ML 1 ML SYRINGE IVP ONE ×2 (16:12→16:39)
[2017-12-26] MEDS: KETOROLAC 30 MG/ML 1 ML VIAL IVP PRN (21:58)
[2017-12-26] MEDS: cefTRIAXone IN SWFI 1,000 MG/10 ML SYRINGE IVP SCH (22:01)
[2017-12-26 23:26] VITALS: PULSE 64
--- NOTE | 2017-12-27 10:51 | P.DS ---
Providers Date of admission: 12/24/17 23:57 Expected date of discharge: 12/27/17 Attending physician: Shaun York Consults: 12/25/17 13:39 Consult Physician Routine Consulting Provider: Jose Baldwin Reason/Comments: gallstones Do you want consulting provider notified?: Yes Primary care physician: [facility] [place] [facility] [place] Course: 32-year-old who presented to the emergency room with a chief complaint of right upper quadrant pain for the last two weeks with occasional emesis. Patient reports her pain states about 20 minutes after eating and was originally only lasting 30 minutes after a meal, but more recently the pain is lasting 2-3 hours after each meal. She reports nausea this morning but no further episodes of vomiting. Reports bowel movement yesterday. Voiding without difficulty. Patient states she saw a family physician in 2003 and was told she had a gallbladder abnormality, but patient was unable to elaborate any further. She states she did not have any gallstones at that time. The patient denies medical history. She has a surgical history of tonsillectomy and . She is a current everyday cigarette smoker. Ultrasound: There is a gallstone impacted in the gallbladder neck., Bile duct is 3 mm. Bile ducts are not dilated. Laboratory data: WBC 10.6. Hemoglobin 13.5. Platelet count 353. Sodium 139. Potassium 4.3. BUN 14. Creatinine 0.70. LFTs and pancreas enzymes within normal limits. Urinalysis: Turbid yellow urine, small hematuria, negative for leukocyte esterase or nitrites.The patient was admitted to the hospital under the care of Dr. Renteria. Consultations were placed to GI. 12/26/2017 Patient seen and examined at the bedside. Patient is scheduled for lap corinne today with Dr. Baldwin. Patient has been NPO. She reports nausea this morning and relates it to being NPO. She denies emesis. She continues to complain of abdominal pain. Vital signs have been stable. 12/27/2017 Patient seen and examined at the bedside. Patient underwent laparoscopic cholecystectomy yesterday. Patient states her pain is tolerable at this time. She reports passing flatus. Denies bowel movement. Patient states she has been up ambulating in her room and in the hallways 4 times since surgery. She denies shortness of breath or chest pain. The patient was deemed stable for discharge. She is to follow up on an outpatient basis with her primary care physician and Dr. Baldwin. The patient was given a prescription for Mina by Dr. Baldiwn for pain control. Discharge Diagnosis: Right upper quadrant abdominal pain, nausea, and vomiting x 2 weeks, suspect acute cholecystitis, US gallbladder reveals gallstone impacted in the common bile duct Nicotine dependence, patient is a current cigarette smoker Morbid obesity: BMI 44.8 Nurse practitioner note has been reviewed by physician. Signing provider agrees with the documented findings, assessment, and plan of care. Patient Condition at Discharge: Good Plan - Discharge Summary Discharge Rx Participant: No New Discharge Prescriptions: New Hydrocodone/Acetaminophen [Mina 5-325] 1 - 2 each PO Q4HR PRN #15 tab PRN Reason: pain Continue Sdx-Tb-Jmlzls 1 tab PO HS Multivitamins, Thera [Multivitamin (formulary)] 1 tab PO HS Discharge Medication List Multivitamins, Thera [Multivitamin (formulary)] 1 tab PO HS 12/25/17 [History] Yow-Ti-Nwpoal 1 tab PO HS 12/25/17 [History] Hydrocodone/Acetaminophen [Mina 5-325] 1 - 2 each PO Q4HR PRN #15 tab 12/26/17 [Rx] Follow up Appointment(s)/Referral(s): Jose Baldwin MD [Medical Doctor] - 01/01/18 Shaun York MD [Primary Care Provider] - 1-2 days
--- NOTE | 2017-12-27 12:52 | P.PN ---
Subjective Progress Note Date: 12/27/17 Principal diagnosis: Acute cholecystitis Patient feels well today. Her pain is improved. Some pain in the epigastric incision site. Tolerating diet. Objective - Vital Signs Vital signs: Vital Signs Temp 98.1 F 12/26/17 22:46 Pulse 64 12/26/17 22:46 Resp 16 12/26/17 22:46 BP 109/74 12/26/17 22:46 Pulse Ox 97 12/26/17 22:46 Intake & Output 12/26/17 12/27/17 12/27/17 18:59 06:59 18:59 Intake Total 1800 450 Output Total 5 Balance 1795 450 Intake: IV 1800 Oral 450 Output: Estimated Blood Loss 5 Other: Voiding Method Toilet # Voids 1 - Exam Abdomen: Soft, nondistended, mild epigastric tenderness, incisions with minimal drainage - Labs CBC & Chem 7: 12/26/17 06:31 12/26/17 06:31 Assessment and Plan (1) Acute cholecystitis due to biliary calculus Narrative/Plan: Continue ambulation. Stable for discharge. Follow-up next week. Current Visit: Yes Status: Acute Code(s): K80.00 - CALCULUS OF GALLBLADDER W ACUTE CHOLECYST W/O OBSTRUCTION SNOMED Code(s): 81089432935218
[2017-12-27 14:19] VITALS: BP 124/84; RESP 20; TEMP 98
[2017-12-28] MEDS ORDERED: PANTOPRAZOLE 40 MG TABLET PO SCH (07:30)
== END 2017-12-27 15:30 | disposition home or self-care (01) ==
LOC: EC 21:27 → 6PED 23:57
PROVIDERS: ADMIT Family Medicine; ATTEND Family Medicine
DX: R10.11 Right upper quadrant pain (principal); R10.13 Epigastric pain; R11.2 Nausea with vomiting, unspecified; K80.47 Calculus of bile duct with acute and chronic cholecystitis with obstruction; F17.210 Nicotine dependence, cigarettes, uncomplicated; Z68.41 Body mass index [BMI] 40.0-44.9, adult; E66.01 Morbid (severe) obesity due to excess calories; Z79.3 Long term (current) use of hormonal contraceptives
CPT/HCPCS: 47562; 99285 ×2; 96374 ×2; 96361 ×2; 96375 ×3; 96376 ×2; 36415; 81025 ×2; 88304; 80053 ×2; 82150 ×2; 83690; 85025 ×2; 85610; 85730; 81001; 76705; G0378 ×4; J2250; J1200; J1644; J2550; J2710; J2405 ×3; J2001 ×2; J0696 ×3; J3010; J1885 ×3; J1170; J0330; J2704; C9113

== ENCOUNTER → 2020-04-03 | Outpatient (CLI) | payer BC ==
--- NOTE | 2020-04-06 09:59 | MM ---
Reason for exam: screening (asymptomatic). Baseline mammogram. History: Patient had first child at age 30. Family history of breast cancer in paternal grandmother. Took hormonal contraceptives for 15 years beginning at age 15. Physical Findings: Nurse did not find any significant physical abnormalities on exam. MG 3D Screening Mammo W/Cad Bilateral CC and MLO view(s) were taken. There are scattered fibroglandular densities. No suspicious calcifications are seen. Intramammary lymph node upper outer right breast. These results were verbally communicated with the patient and result sheet given to the patient on 04/03/20. ASSESSMENT: Benign, BI-RAD 2 RECOMMENDATION: Routine screening mammogram of both breasts at age 38.
== END | disposition home or self-care (01) ==
LOC: RADMAMWWP 14:18
PROVIDERS: ATTEND Obstetrics & Gynecology
DX: Z12.31 Encounter for screening mammogram for malignant neoplasm of breast (principal)
CPT/HCPCS: 77063; 77067

== ENCOUNTER 2022-11-02 10:43 | Emergency (ER) | payer BC, OTHER ==
[2022-11-02 10:51] VITALS: BP 152/102; PULSE 103; TEMP 98
[2022-11-02] MEDS ORDERED: valACYclovir HCL 1,000 MG TABLET PO STA (11:03)
[2022-11-02] MEDS ORDERED: predniSONE 20 MG TAB PO STA (11:03)
--- NOTE | 2022-11-02 11:06 | ED ---
Allergic Reaction HPI - General Chief complaint: Allergic Reaction Stated complaint: having trouble breathing Time Seen by Provider: 11/02/22 10:54 Source: patient, RN notes reviewed Mode of arrival: ambulatory Limitations: no limitations - History of Present Illness Initial Comments: 37-year-old female presents emergency Department chief complaint of possible ALLERGIC reaction. Patient states that she was placed on antibiotics that she had fluid in the ear she states that she was regular not but told her it was infected and was given advice. She states that she started taking the antibiotic developed sores right after in her mouth and which she was switched to cefdinir. She states she took Ceftin here for 5 days and now after stopping she developed the sores in her mouth. Patient states that she also developed yeast infection was given Monistat. Patient denies any difficulty swallowing. No rash or hives. - Related Data Home Medications Medication Instructions Recorded Confirmed Multivitamins, Thera [Multivitamin 1 tab PO HS 12/25/17 12/25/17 (formulary)] Fwy-Ag-Oyjwsg 1 tab PO HS 12/25/17 12/25/17 Previous Rx's Medication Instructions Recorded Hydrocodone/Acetaminophen [[place] 1 - 2 each PO Q4HR PRN #15 tab 12/26/17 5-325] valACYclovir HCL [Valtrex] 1,000 mg PO TID #21 tablet 11/02/22 Allergies Allergy/AdvReac Type Severity Reaction Status Date / Time fluconazole [From Diflucan] AdvReac Rash/Hives Verified 11/02/22 10:57 Review of Systems ROS Statement: Those systems with pertinent positive or pertinent negative responses have been documented in the HPI. ROS Other: All systems not noted in ROS Statement are negative. Past Medical History Past Medical History: No Reported History History of Any Multi-Drug Resistant Organisms: None Reported Past Surgical History: Section, Orthopedic Surgery, Tonsillectomy Additional Past Surgical History / Comment(s): cervical biopsy 2001 for negative result Past Anesthesia/Blood Transfusion Reactions: No Reported Reaction Past Psychological History: No Psychological Hx Reported Smoking Status: Never smoker Past Alcohol Use History: None Reported Past Drug Use History: None Reported - Past Family History Mother History Unknown: Yes Family Medical History: No Reported History General Exam Limitations: no limitations General appearance: alert, in no apparent distress Head exam: Present: atraumatic, normocephalic, normal inspection Eye exam: Present: normal appearance, PERRL, EOMI. Absent: scleral icterus, conjunctival injection, periorbital swelling ENT exam: Present: mucous membranes moist, TM's normal bilaterally, normal external ear exam. Absent: normal oropharynx (Erythematous sores on the inner lips, mucosal region) Neck exam: Present: normal inspection, full ROM. Absent: tenderness, meningismus, lymphadenopathy Respiratory exam: Present: normal lung sounds bilaterally. Absent: respiratory distress, wheezes, rales, rhonchi, stridor Cardiovascular Exam: Present: regular rate, normal rhythm, normal heart sounds. Absent: systolic murmur, diastolic murmur, rubs, gallop, clicks Course Vital Signs 11/02/22 11/02/22 10:49 11:22 Temperature 98 F Pulse Rate 103 H Respiratory 20 16 Rate Blood Pressure 152/102 O2 Sat by Pulse 99 Oximetry Medical Decision Making - Medical Decision Making Was pt. sent in by a medical professional or institution (, PA, MACHINE REPAIRMAN, urgent care, hospital, or group home...) When possible be specific @ -No Did you speak to anyone other than the patient for history (EMS, parent, family, police, friend...)? What history was obtained from this source @ -No Did you review nursing and triage notes (agree or disagree)? Why? @ -I reviewed and agree with nursing and triage notes Were old charts reviewed (outside hosp., previous admission, EMS record, old EKG, old radiological studies, urgent care reports/EKG's, group home records)? Report findings @ -No old charts were reviewed Differential Diagnosis (chest pain, altered mental status, abdominal pain women, abdominal pain men, vaginal bleeding, weakness, fever, dyspnea, syncope, headache, dizziness, GI bleed, back pain, seizure, CVA, palpatations, mental he alth, musculoskeletal)? @ -Viral infection, ALLERGIC reaction, URI, kidney disorders, this this is not conclusive EKG interpreted by me (3pts min.). @ -None X-rays interpreted by me (1pt min.). @ -None done CT interpreted by me (1pt min.). @ -None done U/S interpreted by me (1pt. min.). @ -None done What testing was considered but not performed or refused? (CT, X-rays, U/S, labs)? Why? @ -None What meds were considered but not given or refused? Why? @ -None Did you discuss the management of the patient with other professionals (professionals i.e. , PA, MACHINE REPAIRMAN, lab, RT, psych nurse, licensed master social worker, hogshead cooper, teacher, risk control officer, case management director)? Give summary @ -No Was smoking cessation discussed for >3mins.? @ -No Was critical care preformed (if so, how long)? @ -No Were there social determinants of health that impacted care today? How? (Homelessness, low income, unemployed, alcoholism, drug addiction, transportation, low edu. Level, literacy, decrease access to med. care, group home, rehab)? @ -No Was there de-escalation of care discussed even if they declined (Discuss DNR or withdrawal of care, Hospice)? DNR status @ -No What co-morbidities impacted this encounter? (DM, HTN, Smoking, COPD, CAD, Cancer, CVA, ARF, Chemo, Hep., AIDS, mental health diagnosis, sleep apnea, morbid obesity)? @ -None Was patient admitted / discharged? Hospital course, mention meds given and route, prescriptions, significant lab abnormalities, going to OR and other pertinent info. @ -[Patient has no obvious signs of ALLERGIC reaction she has not had any current medications should be an ALLERGIC reaction to. She does have sores in her mouth which is her largest complaint and did feel this may be a viral-type sore she'll be given Valtrex. Patient is to follow-up with PCP and return for worsening symptoms Undiagnosed new problem with uncertain prognosis? @ -No Drug Therapy requiring intensive monitoring for toxicity (Heparin, Nitro, Insulin, Cardizem)? @ -No Were any procedures done? @ -No Diagnosis/symptom? @ -Viral mouth sore Acute, or Chronic, or Acute on Chronic? @ -Acute Uncomplicated (without systemic symptoms) or Complicated (systemic symptoms)? @ -Uncomplicated Side effects of treatment? @ -No Exacerbation, Progression, or Severe Exacerbation? @ -No Poses a threat to life or bodily function? How? (Chest pain, USA, AR, pneumonia, PE, COPD, DKA, ARF, appy, cholecystitis, CVA, Diverticulitis, Homicidal, Suicidal, threat to staff... and all critical care pts) @ -No Disposition Clinical Impression: Mouth sores, Viral infection Disposition: HOME SELF-CARE Condition: Serious Instructions (If sedation given, give patient instructions): Upper Respiratory Infection (ED) Additional Instructions: Please return to the Emergency Department if symptoms worsen or any other con cerns. Prescriptions: valACYclovir HCL [Valtrex] 1,000 mg PO TID #21 tablet Is patient prescribed a controlled substance at d/c from ED?: No Referrals: Ravindra Renteria Jr, [Doctor of Osteopathic Medicine] - 1-2 days Time of Disposition: 11:06
[2022-11-02 11:23] VITALS: RESP 16
== END 2022-11-02 11:23 | disposition home or self-care (01) ==
LOC: EC 10:43
DX: B34.9 Viral infection, unspecified (principal); K13.79 Other lesions of oral mucosa; Z88.1 Allergy status to other antibiotic agents
CPT/HCPCS: 99283; J7512

== ENCOUNTER → 2022-11-17 | Outpatient (CLI) | payer OTHER ==
[2022-11-17 14:48] LABS: Basophils # (A) 0.02 X 10*3/uL (0.00-0.10); Basophils % (A) 0.2 %; Eosinophils # (A) 0.15 X 10*3/uL (0.04-0.35); Eosinophils % (A) 1.3 %; HCT 42.2 % (37.2-46.3); HGB 13.1 g/dL (12.0-15.0); Immature Grans, Automated 0.4 %; Lymphocytes # (A) 2.92 X 10*3/uL (0.90-5.00); Lymphocytes % (A) 26.2 %; MCH 27.8 pg (27.0-32.0); MCV 89.6 fL (80.0-97.0); Mean Platelet Volume 9.6 fL (9.5-12.2); Monocytes # (A) 0.77 X 10*3/uL (0.20-1.00); Monocytes % (A) 6.9 %; NRBC Per 100 WBC 0 /100 WBCS (0.0-0.0); Neutrophils # (A) 7.26 X 10*3/uL (1.80-7.70); Platelet Count 344 X 10*3/uL (140-440); RBC 4.71 X 10*6/uL (4.10-5.20); RDW 13.4 % (11.5-14.5); WBC 11.16 X 10*3/uL (4.50-10.00)
[2022-11-17 15:11] LABS: ALT 22 U/L (8-44); AST 14 U/L (13-35); African American GFR (CKD) 127.3 (60.0-200.0); Albumin 3.7 g/dL (3.8-4.9); Albumin/Globulin Ratio 1.66 (1.60-3.17); Alkaline Phosphatase 57 U/L (41-126); BUN/Creat Ratio 15.74 Ratio (12.00-20.00); Blood Urea Nitrogen 10.8 mg/dL (9.0-27.0); Calcium 8.6 mg/dL (8.7-10.3); Carbon Dioxide 24.1 mmol/L (20.0-27.5); Chloride 108 mmol/L (96-109); Globulin 2.2 g/dL (1.6-3.3); Glucose 88 mg/dL (70-110); LDL Cholesterol,Calculated 53.9 mg/dL (0.0-131.0); Non-African American GFR(CKD) 109.9 (60.0-200.0); Potassium 4.5 mmol/L (3.5-5.5); Sodium 141 mmol/L (135-145); Total Protein 5.9 g/dL (6.2-8.2)
== END | disposition home or self-care (01) ==
LOC: LABWHC1 08:42
PROVIDERS: ATTEND Nurse Practitioner Family
DX: Z00.00 Encounter for general adult medical examination without abnormal findings (principal); E66.01 Morbid (severe) obesity due to excess calories; Z76.89 Persons encountering health services in other specified circumstances; R11.2 Nausea with vomiting, unspecified; Z68.42 Body mass index [BMI] 45.0-49.9, adult
CPT/HCPCS: 36415; 80053; 80061; 84439; 84443; 85025

== ENCOUNTER → 2023-01-19 | Outpatient (CLI) | payer OTHER ==
[2023-01-20 04:43] LABS: HIV 2 AB Non-Reactive (Non-Reactive); HIV AB P24 Non-Reactive (Non-Reactive); HIV P24 AG Non-Reactive (Non-Reactive)
== END | disposition home or self-care (01) ==
LOC: LABWHC1 10:00
PROVIDERS: ATTEND Family Medicine
DX: Z11.3 Encounter for screening for infections with a predominantly sexual mode of transmission (principal)
CPT/HCPCS: 36415; 86780; 87390

== ENCOUNTER → 2023-08-10 | Outpatient (CLI) | payer OTHER ==
[2023-08-11 02:45] LABS: Immunoglobulin M 93.9 mg/dL (40.0-280.0)
[2023-08-11 12:51] LABS: IgG Subclass 1 398.9 mg/dL (382.40-928.60); IgG Subclass 2 253.5 mg/dL (241.80-700.30); IgG Subclass 3 59.5 mg/dL (21.82-176.00); IgG Subclass 4 13.3 mg/dL (3.92-86.40)
== END | disposition home or self-care (01) ==
LOC: LABWHC1 15:48
PROVIDERS: ATTEND Otolaryngology
DX: J01.91 Acute recurrent sinusitis, unspecified (principal)
CPT/HCPCS: 36415; 82784; 82787

== ENCOUNTER → 2023-08-10 | Outpatient (CLI) | payer OTHER ==
--- NOTE | 2023-08-14 09:11 | MM ---
Reason for Exam: Screening (asymptomatic). Last mammogram was performed 3 year(s) and 4 month(s) ago. Patient History: Menarche at age 8. First Full-Term at age 30. Late child-bearing (after 30). Premenopausal. Hormonal Contraceptives, starting at age 15 for 15 years. Paternal grandmother had breast cancer, age 70. Risk Values: Regina 5 year model risk: 0.8%. NCI Lifetime model risk: 14.8%. Prior Study Comparison: 04/03/2020 Bilateral Screening Mammogram, [facility]. Tissue Density: There are scattered fibroglandular densities. Findings: Analyzed By CAD. There is no suspicious group of microcalcifications or new suspicious mass. Overall Assessment: Negative, BI-RAD 1 Management: Screening Mammogram of both breasts in [address] [facility] will attempt to contact patient to return for supplemental views and ultrasound if indicated. Patient should continue monthly self-breast exams. A clinical breast exam by your physician is recommended on an annual basis. This exam should not preclude additional follow-up of suspicious palpable abnormalities. Note on Regina scores and lifetime risk: 1. A Regina score greater than 3% is considered moderate risk. If this is the case, consider specialist referral to assess eligibility for a risk reducing agent. 2. If overall lifetime risk for the development of breast cancer is 20% or higher, the patient may qualify for future screening with alternating mammogram and breast MRI. Electronically signed and approved by: Hang Flaherty DO
== END | disposition home or self-care (01) ==
LOC: RADMAMWWP 15:44
PROVIDERS: ATTEND Obstetrics & Gynecology
DX: Z12.31 Encounter for screening mammogram for malignant neoplasm of breast (principal); Z80.3 Family history of malignant neoplasm of breast
CPT/HCPCS: 77063; 77067

== ENCOUNTER → 2023-08-21 | Outpatient (CLI) | payer OTHER ==
--- NOTE | 2023-08-21 18:35 | XR ---
EXAMINATION TYPE: XR chest 2V DATE OF EXAM: 08/21/2023 COMPARISON: None HISTORY: 38-year-old female U07.1 COVID VIRUS, R05.9 COUGH TECHNIQUE: Frontal and lateral views FINDINGS: The cardiomediastinal silhouette, aorta, and pulmonary vasculature are within normal limits. Lungs an d pleural spaces are clear. IMPRESSION: No acute cardiopulmonary process.
[2023-08-21 19:02] LABS: Basophils # (A) 0.03 X 10*3/uL (0.00-0.10); Basophils % (A) 0.2 %; Eosinophils # (A) 0.09 X 10*3/uL (0.04-0.35); Eosinophils % (A) 0.7 %; HCT 46.4 % (37.2-46.3); HGB 14.6 g/dL (12.0-15.0); Lymphocytes # (A) 3.52 X 10*3/uL (0.90-5.00); Lymphocytes % (A) 29.1 %; MCH 27.9 pg (27.0-32.0); MCHC 31.5 g/dL (32.0-37.0); MCV 88.7 FL (80.0-97.0); Mean Platelet Volume 9.2 FL (9.5-12.2); Monocytes % (A) 5.8 %; NRBC Per 100 WBC 0 X 10*3/uL (0.00-0.01); Platelet Count 391 X 10*3/uL (140-440); RBC 5.23 X 10*6/uL (4.10-5.20); RDW 13.2 % (11.5-14.5); WBC 12.08 X 10*3/uL (4.50-10.00)
[2023-08-21 19:34] LABS: ALT 31 U/L (8-44); AST 23 U/L (13-35); Albumin 4.2 g/dL (3.8-4.9); Albumin/Globulin Ratio 1.91 Ratio (1.60-3.17); Alkaline Phosphatase 57 U/L (41-126); BUN/Creat Ratio 9.57 Ratio (12.00-20.00); Blood Urea Nitrogen 6.7 mg/dL (9.0-27.0); Calcium 9.4 mg/dL (8.7-10.3); Carbon Dioxide 25.5 mmol/L (21.6-31.8); Chloride 104 mmol/L (96-109); Globulin 2.2 g/dL (1.6-3.3); Glucose 97 mg/dL (70-110); Potassium 4.8 mmol/L (3.5-5.5); Sodium 141 mmol/L (135-145); Total Bilirubin 0.4 mg/dL (0.3-1.2); Total Protein 6.4 g/dL (6.2-8.2)
== END | disposition home or self-care (01) ==
LOC: LABWHC1 12:41
PROVIDERS: ATTEND Family Medicine
DX: U07.1 COVID-19 (principal); J32.2 Chronic ethmoidal sinusitis; H92.01 Otalgia, right ear
CPT/HCPCS: 36415; 71046; 80053; 85025